=== PATIENT | male | born 1945 | race Caucasian/White ===

== ENCOUNTER 2020-04-24 05:51 | Inpatient (IN) | payer OTHER ==
[2020-04-24] VITALS (17 sets, daily range): BP systolic 110–160; BP diastolic 55–109
[~2020-04-24] VITALS: Ht 165.1 cm; Wt 79.4 kg
--- NOTE | ~2020-04-24 | EKG ---
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 Of Maintenance: BECKA : 1945 Requested By: Nuris Ortega Order Number: [id number] MD: Measurements Intervals [place] Rate: 99 P: 54 [place]: 191 QRS: -50 QRSD: 79 T: 84 QT: 291 QTc: 374 Interpretive Statements Sinus rhythm Inferoposterior infarct, acute (RCA) Abnormal lateral Q waves Probable RV involvement, suggest recording right precordial leads Compared to ECG 04/24/2020 05:54:09 Q waves now present Atrial premature complex(es) no longer present Myocardial infarct finding still present [email or web address] By: 08 Epiphany EpiphanyMD /RITA
[2020-04-24] MEDS ORDERED: PROSCAR 5MG TABL5 M1 PO (06:29)
[2020-04-24] MEDS ORDERED: OMEPRAZOLE40 MG PO (06:29)
[2020-04-24] MEDS ORDERED: SIMVASTATIN80 MG PO (06:30)
[2020-04-24] MEDS ORDERED: FLOMAX0.4 MG PO (06:30)
[2020-04-24] MEDS ORDERED: MELOXICAM15 MG PO (06:30)
[2020-04-24] MEDS ORDERED: MAGNESIUM400 MG PO (06:31)
[2020-04-24 06:33] LABS: ABSOLUTE BASOPHILS 0.1 thou/uL (0.0-0.2); ABSOLUTE EOSINOPHILS 0.3 thou/uL (0.0-0.7); ABSOLUTE LYMPHOCYTES 2.2 thou/uL (0.8-5.3); ABSOLUTE MONOCYTES 0.5 thou/uL (0.0-1.2); ABSOLUTE NEUTROPHILS 8.7 thou/uL (1.6-8.1); BASOPHILS 0.5 %; EOSINOPHILS 2.2 %; HEMATOCRIT 45.8 % (42.0-52.0); HEMOGLOBIN 15.3 gm/dL (14.0-18.0); MCH 30.5 pg (26.0-34.0); MCHC 33.3 g/dL (28.0-37.0); MCV 91.8 fL (80.0-100.0); MONOCYTES 4.6 %; MPV 9.8 fl. (7.2-11.1); NUCLEATED RBCS 0 /100WBC; PLATELET COUNT* 213 thou/uL (150-400); POLYS 73.7 %; RBC 4.99 mil/uL (4.50-6.00); RDW-CV 13.2 % (10.5-14.5); WBC 11.7 thou/uL (4.0-11.0)
[2020-04-24 06:44] LABS: ANION GAP 11 mmol/L (7-16); BUN 13 mg/dL (7-18); CALCIUM 8.6 mg/dL (8.5-10.1); CHLORIDE 99 mmol/L (98-107); CO2 25 mmol/L (21-32); CREATININE 1.3 mg/dL (0.6-1.3); GLUCOSE 243 mg/dL (70-99); POTASSIUM 3.4 mmol/L (3.5-5.1); PROTIME 10.2 Seconds (9.20-11.50); SODIUM 135 mmol/L (136-145)
[2020-04-24 06:54] LABS: ALBUMIN 4.2 g/dL (3.4-5.0); ALKALINE PHOSPHATASE 89 U/L (46-116); CHOLESTEROL 147 mg/dL (<200); HDL CHOLESTEROL 38 mg/dL (>40); LDL CHOLESTEROL 73 mg/dL (<100); MAGNESIUM 2.1 mg/dL (1.8-2.4); NT-PRO BRAIN NAT PEPTIDE 50 pg/mL (<300); SGOT 18 U/L (15-37); SGPT 48 U/L (30-65); TC:HDL 3.9 Ratio (Not establshd); TOTAL BILIRUBIN 0.4 mg/dL (<0.1-1.0); TOTAL PROTEIN 7.4 g/dL (6.4-8.2); TRIGLYCERIDE 181 mg/dL (<150); VLDL 36 mg/dL (<40)
[2020-04-24 06:55] LABS: SERUM ASSESSMENT Clear
--- NOTE | 2020-04-24 09:45 | NUR ---
PT REFUSING ANY PAIN MEDICATION FOR CHEST DISCOMFORT.
--- NOTE | 2020-04-24 10:04 | CARD ---
[facility] [address] [place] [address] CARDIAC CATH REPORT Name: EDUARDO DYKES Sanjiv Room: [address] IN [facility]#: [id number] Admission: 04/24/20 Attend Phys: Pushpa Centeno Discharge: Date of : 47 Report #: [id number] THIS REPORT FOR: cc: FAM - No family physician/PCP FAM - No family physician/PCP ~ Rogelio Diamond MD APPROVED REPORT Study performed: 04/24/2020 06:36:32 Patient Details Patient Status: ED Room #: The patient is a 75 year-old male Event Personnel Rogelio Diamond Regional Guide, Charla Ray RN RN, Delaney Saul RTR Scrub, Angel Sam RTR Monitor Procedures Performed Rt femoral artery access, Coronary Angiography Only CORANG , LUZMA Place w/wo Plasty Single CIRC , Hemostasis w/ Angioseal Indication STEMI (>0 to less than or equal to 6 hours), Dyspnea, Chest pain Risk Factors Hypercholesterolemia Admission/Lab Medications/Medications given during procedure Ticagrelor PO 180 mg, Angiomax IV 12 ml, Aggrastat IV 27.83 ml per hr, Aggrastat Unknown 8 ml, Adenosine IC 150 mcg Procedure Narrative The patient was brought emergently to the Cardiac Catheterization Laboratory and was prepped and draped in a sterile manner. The right femoral was infiltrated with 2% Lidocaine subcutaneous anesthesia. A [place] 6 FR sheath was inserted into the right femoral artery. Coronary angiography was performed using coronary diagnostic catheters. The right coronary system was accessed and visualized with a 6F JR4 catheter. The left coronary system was accessed and visualized with a 6F JL4 catheter. Pre[place] [address] CARDIAC CATH REPORT Name: EDUARDO DYKES Room: [address] IN [facility]#: [id number] Admission: 04/24/20 Attend Phys: Pushpa Centeno Discharge: Date of : 47 Report #: [id number] was performed . Closure device was deployed with a 6 Fr Angioseal STS. The patient tolerated the procedure well and there were no complications associated with the procedure. There was no hematoma. Intraoperative Conscious Sedation Sedation start time: 06:46 Case end Time: 07:34 No sedation given. Fluoro Time: 12.8 minutes Dose: DAP [id number] cGycm2 2248 mGy Contrast Type and Amount: Visipaque 180 ml Coronary Angiography The patient's coronary anatomy is left dominant. Diagnostic Cath Left Main The left main artery is a large-caliber vessel, patent with no flow-limiting lesions. LAD The LAD is a moderate-sized caliber vessel, traverses the anterior wall and wraps around the apex. There is a severe stenosis in the proximal/mid segment, 90%. Diagonal 1 This is a small to moderate-sized caliber vessel, with mild disease proximally. Circumflex The left circumflex artery is a moderate-sized caliber vessel, dominant as it supplies the left PDA. 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 OM1 This is a moderate-sized caliber vessel, supplies 2 branches as it travels the lateral wall. There is mild disease in the proximal segment. OM2 This is a moderate-sized caliber vessel, patent with no flow-limiting lesions. L PDA There is severe diffuse disease throughout the left PDA. Right Coronary This is a small, nondominant vessel with no flow-limiting lesions. Left Ventriculography Left Ventriculography was not performed. Hemodynamics The aortic pressure is 134/70 mmHg with a mean of 101 mmHg. PCI Technique Lesion Anticoagulation was achieved with Angiomax. Patient was preloaded with Angiomax IV 12 ml. Percut[place] [address] CARDIAC CATH REPORT Name: EDUARDO DYKES Room: [address] IN [facility]#: [id number] Admission: 04/24/20 Attend Phys: Pushpa Centeno Discharge: Date of : 47 Report #: [id number] performed on the proximal circumflex artery segment. The lesion stenosis prior to intervention was 100% with JACKI 0 flow. A 6FR XB 3.5 100CM Guide Catheter was used to engage the lm ostium. A Luge Wire 180 Interventional Guidewire was used to cross the lesion. BALLOON DILATION A Balloon catheter Trek RX 2.5 X 12 was inserted and inflated up to 8.00atm for 12seconds. Additional Inflation: 8.00atm for 5seconds. Additional Inflation: 8.00atm for 6seconds. After the initial balloon dilatation with a 2.5 mm compliant balloon, there was filling defects consistent with thrombus at the tail end of the occlusion in the proximal left circumflex artery. Pronto extraction catheter used for thrombectomy. He did have decreased blood flow in the distal left circumflex artery, a 2.0 mm wuqf-nre-cmaf balloon was placed in the distal left circumflex artery and aliquots of adenosine was introduced. This restored the distal flow to JACKI II. The blood flow to OM1 and OM 2 was JACKI-3 throughout the procedure. STENT DEPLOYMENT A drug-eluting stent Shashank RX Stent 3.0X18mm was inserted and inflated up to 18.00atm for 14seconds. After the initial stent deployment, there was evidence for thrombus just distal to the stent. A second stent (3.0 mm Shashank LUZMA) was placed at this region to cover the thrombus. Final angiography reveals 0 % stenosis with JACKI 3 flow. PCI Technique Lesion 2 Percutaneous Coronary Intervention was performed on the mid circumflex artery segment. Stent Deployment A drug-eluting stent Shashank RX Stent 3.0X12mm was inserted and inflated up to 18.00atm for 11seconds. Additional Inflation: 18.00atm for 6seconds. Conclusion 1. Successful insertion of drug-eluting stents into the total occlusion in the proximal segment of a dominant left circumflex artery. 2. A Pronto extraction catheter was used to remove thrombus. 3. There is a severe occlusion in the proximal/mid LAD, recommend a staged PCI procedure. [address] [address] CARDIAC CATH REPORT Name: EDUARDO DYKES: [address] [facility] IN .R.#: [id number] Admission: 04/24/20 Attend Phys: Pushpa Centeno Discharge: Date of : 47 Report #: [id number] 4. Recommend aggressive risk factor management and dual antiplatelet therapy. <ELECTRONICALLY SIGNED> By: Rogelio Diamond MD 04/24/20 1004 1004 1004Rogelio Diamond MD /INF
--- NOTE | 2020-04-24 10:30 | NUR ---
RECEIVED PT AT 0924 TO PREOP AREA HOLDING, AWAITING INPATIENT ROOM AVAILABILTY. RECEIVED REPORT, CHECKED GROIN AND PEDAL PULSES UPON ARRIVAL. VSS, MONITOR APPLIED, 02 PER NRB. ADMISSION HISTORY AND ASSESSMENT COMPLETED. AT BEDSIDE. TAKING IN PO FLUIDS.
--- NOTE | 2020-04-24 11:30 | NUR ---
BIVALIRUDIN GTT FROM COW BUYER DISCONTINUED AT THIS TIME.
--- NOTE | 2020-04-24 12:16 | EKG ---
[place] [address] ELECTROCARDIOGRAM REPORT Name: EDUARDO DYKES Room: [place] [address] ADM IN [facility]#: [id number] Admission: 04/24/20 Attend Phys: Ronaldo Broussard Discharge: Date of : 47 Date of Service: 04/24/20 0554 Report #: [id number] THIS REPORT FOR: //name// [facility] ED Test Date: 2020-04-24 Test Time: 05:54:09 Pat Name: EDUARDO DYKES Department: Room: [facility] Gender: M Rolled Ham Lacer: SY : 1945 Requested By: Nuris Ortega Order Number: [id number] MD: Rosalio Morin Measurements Intervals [place] Rate: 75 P: 65 ID: 199 QRS: 46 QRSD: 109 T: 91 QT: 358 QTc: 400 Interpretive Statements Sinus rhythm Atrial premature complexes Inferoposterior infarct, acute (RCA) Probable RV involvement, suggest recording right precordial leads Baseline wander in lead(s) V3 No previous ECG available for comparison Electronically Signed On 04-24-2020 12:16:25 MENTAL HEALTH NURSE by Rosalio Morin [email or web address] <ELECTRONICALLY SIGNED> By: Rosalio Morin MD, FAC 04/24/20 1216 0554 0554 Rosalio Morin MD, FAC /EPI
--- NOTE | 2020-04-24 12:18 | EKG ---
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 : 1945 Requested By: Rosalio Morin Order Number: [id number] Opal MD: Rosalio Morin Measurements Intervals [place] Rate: 99 P: 54 ID: 191 QRS: -50 QRSD: 79 T: 84 QT: 291 QTc: 374 Interpretive Statements Sinus rhythm Inferoposterior infarct, acute (RCA) Abnormal lateral Q waves Probable RV involvement, suggest recording right precordial leads Compared to ECG 04/24/2020 05:54:09 Atrial premature complex(es) no longer present Myocardial infarct finding still present Electronically Signed On 04-24-2020 12:18:45 PUG MILL OPERATOR by Rosalio Morin [email or web address] <ELECTRONICALLY SIGNED> By: Rosalio Morin MD, [facility] 04/24/20 1218 1109 1109 Rosalio Morin MD, [facility] /EPI
--- NOTE | 2020-04-24 12:30 | NUR ---
RT CALLED FOR ALBUTEROL MDI
[2020-04-24 12:40] LABS: CALCIUM 9.2 mg/dL (8.5-10.1); POTASSIUM 4.1 mmol/L (3.5-5.1)
[2020-04-24 12:44] LABS: PHOSPHORUS* 2.3 mg/dL (2.5-4.9)
--- NOTE | 2020-04-24 12:45 | NUR ---
DR. KIRK IN TO SEE PT. TALKED WITH PT AND .
--- NOTE | 2020-04-24 13:24 | NUR ---
Called RT for 2nd time about 1130 nebulizer dose. RT arrived and is assessing pt. Pt is minimally elevated in bed and able to eat parial lunch
--- NOTE | 2020-04-24 13:34 | NUR ---
Dr. Zhang here and told of pts elevated trop. Discussed findings from RT and albuterol changed to PRN.
--- NOTE | 2020-04-24 15:20 | NUR ---
REPORT CALLED TO PRESTON JOHNSON. TRANSPORTED PT VIA BED TO ROOM 231. MONITOR APPLIED. PT ORIENTED TO ROOM AND CALL LIGHT. WEARING 3L/NC, NS AT 50 ML/HR. CALL LIGHT IN REACH.
--- NOTE | 2020-04-24 15:38 | NUR ---
RECIEVED REPORT FROM TIERNEY RN IN PACU AT 1454- S/P CATH VIA ACCESS TO RIGHT GROIN WITH 2 STEANTS REPORTED TO HAVE BEEN PLACED TO LEFT CIRCUMFLEX- PT ARRIVED TO UNIT VIA BED AT 1512 TO ROOM 231- INVESTIGATOR INTERNAL REVENUE PLACED ORDERED, TRACING SR- VSS, O2 SAT 96% ON 2L VIA NC- PT A&O X4- CONT OF BOWEL AND BLADDER- OFF BED REST AT THIS TIME-IV NOTED TO RIGHT AC AND LEFT WRIST INTACT, IVF INFUSSING PRESCIBED- RIGHT GROIN C/D/I WITH NO HEMATOMA NOTED- MILD DISCOMFORT REPORTED TO MID CHEST- PRIOR ASSESSMENT REVIEWED AND THIS NURSE AGREES-PT DENIES ANY OPEN AREAS/SOARS- CALL LIGHT AND PERSONAL BELONGINGS WITH IN REACH- ALL NEEDS MET AT THIS TIME-WCTM
--- NOTE | 2020-04-24 17:16 | 2DMMODE ---
[place] [address] 2 D/M-MODE ECHOCARDIOGRAM Name: EDUARDO DYKES Room: [address] IN [facility]#: [id number] Admission: 04/24/20 Attend Phys: Ronaldo Broussard Discharge: Date of : 47 Date of Service: 04/24/20 1716 Report #: [id number] THIS REPORT FOR: cc: Cameron Allen Bradley L. DO Blick, David R. MD [facility] ~ APPROVED REPORT Study performed: 04/24/2020 13:43:04 EXAM: Comprehensive 2D, Doppler, and color-flow Echocardiogram Patient Location: In-Patient Room #: er BSA: 1.87 HR: 82 bpm BP: 131/84 mmHg Rhythm: NSR Other Information Study Quality: Good Indications Acute OR Chest Pain 2D Dimensions IVSd: 10.65 (7-11mm) LVOT Diam: 18.09 (18-24mm) LVDd: 47.29 mm PWd: 10.47 (7-11mm) Ascending Ao: 31.82 (22-36mm) LVDs: 34.21 (25-40mm) Aortic Root: 30.72 mm Volumes Left Atrial Volume (Systole) LA ESV Index: 25.70 mL/m2 Aortic Valve AoV Peak Phu.: 1.09 m/s AO Peak Gr.: 4.73 mmHg LVOT Max P.24 mmHg AO Mean Gr.: 2.67 mmHg LVOT Mean P.83 mmHg LVOT Max V: 1.03 m/s AO V2 VTI: 17.46 cm LVOT Mean V: 0.61 m/s ÁNGELA (VTI): 2.65 cm2 LVOT V1 VTI: 18.00 [place] [address] 2 D/M-MODE ECHOCARDIOGRAM Name: EDUARDO DYKES Room: [address] IN [facility]#: [id number] Admission: 04/24/20 Attend Phys: Ronaldo Broussard Discharge: Date of : 47 Date of Service: 04/24/20 1716 Report #: [id number] Mitral Valve E/A Ratio: 1.28 MV Decel. Time: 167.83 ms MV E Max Phu.: 0.72 m/s MV PHT: 48.67 ms MVA (PHT): 4.52 cm2 TDI E/Lateral E': 9.00 E/Medial E': 6.55 Medial E' Phu.: 0.11 m/s Lateral E' Phu.: 0.08 m/s Pulmonary Valve PV Peak Phu.: 0.90 m/s PV Peak Gr.: 3.21 mmHg Tricuspid Valve RAP Estimate: 5.00 mmHg TR Peak Gr.: 34.90 mmHg RVSP: 39.00 mmHg PA Pressure: 39.00 mmHg Left Ventricle The left ventricle is normal size. severe hypokinesis noted of the posterior wall There is normal left ventricular wall thickness. Left ventricular systolic function is mildly decreased. LVEF is 40-45%. The left ventricular diastolic function is normal. Right Ventricle The right ventricle is normal size. The right ventricular systolic function is normal. Atria The left atrium size is normal. The right atrium size is normal. Aortic Valve The aortic valve is normal in structure. No aortic regurgitation is present. There is no aortic valvular stenosis. Mitral Valve The mitral valve is normal in structure. Trace mitral regurgitation. No evidence of mitral valve stenosis. Tricuspid Valve The tricuspid valve is normal in structure. Mild tricuspid regurgitation. estimated pa pressure 45 [place] [address] 2 D/M-MODE ECHOCARDIOGRAM Name: EDUARDO DYKES Room: [address]#: [id number] Admission: 04/24/20 Attend Phys: Ronaldo Broussard Discharge: Date of : 47 Date of Service: 04/24/20 1716 Report #: [id number] Pulmonic Valve Pulmonic valve is not well visualized. There is no pulmonic valvular regurgitation. Great Vessels The aortic root is normal in size. IVC is normal in size and collapses >50% with inspiration. Pericardium There is no pericardial effusion. <Conclusion> LVEF is 40-45%. severe hypokinesis noted of the posterior wall Mild tricuspid regurgitation. estimated pa pressure 45 mm Hg <ELECTRONICALLY SIGNED> By: Rosalio Morin MD, FACC 04/24/201715 15 15 Rosalio Morin MD, FACC /INF
[2020-04-25] VITALS (7 sets, daily range): BP systolic 99–152; BP diastolic 60–79
[2020-04-25 04:25] LABS: HEMATOCRIT 41.9 % (42.0-52.0); HEMOGLOBIN 14.1 gm/dL (14.0-18.0); MCH 30.4 pg (26.0-34.0); MCHC 33.7 g/dL (28.0-37.0); MCV 90.1 fL (80.0-100.0); MPV 9.9 fl. (7.2-11.1); NUCLEATED RBCS 0 /100WBC; PLATELET COUNT* 193 thou/uL (150-400); RBC 4.65 mil/uL (4.50-6.00); RDW-CV 13.5 % (10.5-14.5); WBC 19.4 thou/uL (4.0-11.0)
[2020-04-25 05:03] LABS: ANION GAP 14 mmol/L (7-16); BUN 15 mg/dL (7-18); CALCIUM 9.2 mg/dL (8.5-10.1); CHLORIDE 100 mmol/L (98-107); CO2 24 mmol/L (21-32); GLUCOSE 143 mg/dL (70-99); SODIUM 138 mmol/L (136-145)
--- NOTE | 2020-04-25 06:34 | NUR ---
ASSUMED CARE OF PT AFTER REPORT AT 1930. PT A&OX4. VSS. PHYSICAL ASSESSMENT COMPLETED AND CHARTED. PT ON O2 AT 2L NC. PT TRACING SR ON TELE. PT UPADLIB TO RESTROOM. PT DENIES ANY PAIN. POST CATH SITE TO RIGHT GROIN C/D/I. CALL LIGHT WITHIN REACH.
[2020-04-25 08:01] LABS: ABSOLUTE LYMPHOCYTES 0.6 thou/uL (0.8-5.3); ABSOLUTE MONOCYTES 0.2 thou/uL (0.0-1.2); ABSOLUTE NEUTROPHILS 18.6 thou/uL (1.6-8.1)
[2020-04-25 08:02] LABS: PLATELET ESTIMATE ADEQUATE
--- NOTE | 2020-04-25 10:39 | NUR ---
CM SPOKE TO THE PT TO DISCUSS CM ASSESSMENT. PT A&O, INDEPENDENT WITH ADL'S, ACTIVE AND DRIVES. PT RESIDES AT HOME WITH SPOUSE. PT USES 0 DME. PT HAS 0 HX OF HH OR SNF. NO CM D/C PLANNING NEEDS ANTICIPATED. CM WILL REMAIN AVAILABLE TO ASSIST AND FOLLOW NEEDED.
--- NOTE | 2020-04-25 18:39 | NUR ---
PATIENT RESTING IN BED. PATIENT IS UP AD WEN IN ROOM. PATIENT HAS COMPLAINTS OF ONGOING MILD CHEST DISCOMFORT, DENIES NEED FOR MEDICATION. NITROPASTE APPLIED ORDERED. PATIENT HAD COMPLAINTS OF SHORTNESS OF BREATH THIS AFTERNOON. PATIENT FOUND ON ROOM AIR, SATS AT 90%, PATIENT PLACED BACK ON 2L/NC AND SYMPTOMS IMPROVED. PATIENT HAS GOOD APPETITE. PATIENT DENIES ANY NEEDS AT THIS TIME. CALL LIGHT WITHIN REACH.
[2020-04-26 04:09] VITALS: BP 96/62
[2020-04-26 04:13] LABS: ABSOLUTE NEUTROPHILS 15.3 thou/uL (1.6-8.1); BASOPHILS 0.1 %; HEMOGLOBIN 12.7 gm/dL (14.0-18.0); MCH 30.3 pg (26.0-34.0); MCHC 33.4 g/dL (28.0-37.0); MCV 90.7 fL (80.0-100.0); MPV 10.4 fl. (7.2-11.1); NUCLEATED RBCS 0 /100WBC; PLATELET COUNT* 158 thou/uL (150-400); POLYS 87.9 %; RBC 4.19 mil/uL (4.50-6.00); RDW-CV 13.4 % (10.5-14.5); WBC 17.4 thou/uL (4.0-11.0)
[2020-04-26 04:33] LABS: ALBUMIN 3.4 g/dL (3.4-5.0); CALCIUM 8.9 mg/dL (8.5-10.1); CREATININE 1.2 mg/dL (0.6-1.3); POTASSIUM 4.3 mmol/L (3.5-5.1); TOTAL PROTEIN 6.4 g/dL (6.4-8.2)
--- NOTE | 2020-04-26 07:36 | NUR ---
ASSUMED CARE OF PT AFTER REPORT AT 1930. PT A&OX4. VSS. PHYSICAL ASSESSMENT COMPLETED AND CHARTED. PT ON O2 AT 2L NC PRN. PT TRACING SR/PAC ON TELE. PT UPADLIB TO RESTROOM. PT DENIES ANY PAIN. CALL LIGHT WITHIN REACH.
[2020-04-26 08:51] VITALS: BP 91/61
--- NOTE | 2020-04-26 12:18 | NUR ---
ASSUMED CARE OF PT THIS AM AROUND 714- METER READER IN PLACE ORDERED, TRACING SR- UPON ASSESSMENT PT NOTED TO BE RESTING IN BED, WATCHING TV- PT A&O X4- CONT OF BOWEL AND BLADDER-UP AD-WEN IN ROOM, STEADY GAIT NOTED- LCTA, RESP EVEN AND UN-LABORED- VSS, O2 SAT 94% ON RA- ABD SOFT/ROUND/NON-TENDER, BS X4 QUADS- LAST BM REPORTED X2 DAYS AGO- IV NOTED TO RIGHT AC AND LEFT HAND INTACT AND SL-GOOD PO INTAKE NOTED THIS SHIFT WITH MEALS, BS MONITORED ORDERED- RIGHT GROIN SITE C/D/I, HEALING WELL- PLANNED CATH FOR IN AM, PT TO BE NPO AT 12PM-BP NOTED TO BE LOW AT 91/61, NITRO PASTE REMOVED FROM CHEST AND NEXT DOSE HELD-CALL LIGHT AND PERSONAL BELONGINGS WITH IN REACH- ALL NEEDS MET AT THIS TIME-WCTM
[2020-04-26 13:22] LABS: TROPONIN-I LEVEL > 200.00 ng/mL (<0.06)
[2020-04-26 14:04] VITALS: BP 98/67
[2020-04-26 18:59] VITALS: BP 98/66
[2020-04-26 19:17] VITALS: BP 98/66
[2020-04-26 21:00] VITALS: BP 104/66
[2020-04-27] VITALS (12 sets, daily range): BP systolic 101–162; BP diastolic 62–82
[2020-04-27 04:10] LABS: ABSOLUTE LYMPHOCYTES 0.8 thou/uL (0.8-5.3); ABSOLUTE MONOCYTES 0.8 thou/uL (0.0-1.2); ABSOLUTE NEUTROPHILS 11.9 thou/uL (1.6-8.1); BASOPHILS 0.3 %; EOSINOPHILS 0.1 %; HEMATOCRIT 39.7 % (42.0-52.0); HEMOGLOBIN 13.5 gm/dL (14.0-18.0); LYMPHOCYTES 6.2 %; MCH 30.9 pg (26.0-34.0); MCHC 33.9 g/dL (28.0-37.0); MCV 91.1 fL (80.0-100.0); MONOCYTES 6.1 %; MPV 10.2 fl. (7.2-11.1); NUCLEATED RBCS 0 /100WBC; PLATELET COUNT* 147 thou/uL (150-400); POLYS 87.3 %; RBC 4.36 mil/uL (4.50-6.00); RDW-CV 13.4 % (10.5-14.5); WBC 13.6 thou/uL (4.0-11.0)
[2020-04-27 04:26] LABS: APTT 29.2 Seconds (25.0-31.3)
[2020-04-27 04:35] LABS: ALBUMIN 3.3 g/dL (3.4-5.0); CALCIUM 8.9 mg/dL (8.5-10.1); CREATININE 1.2 mg/dL (0.6-1.3); POTASSIUM 3.9 mmol/L (3.5-5.1); TOTAL BILIRUBIN 1.9 mg/dL (<0.1-1.0); TOTAL PROTEIN 6.7 g/dL (6.4-8.2)
--- NOTE | 2020-04-27 05:38 | NUR ---
No acute event this shift. Pt complains of mild R leg pain. Tylenol given with relief. R groin cath site intact. Pt VS stable. Pt NPO midnight for heart cath. Call light within reach, will continue POC.
--- NOTE | 2020-04-27 07:15 | NUR ---
CHANGE OF SHIFT REPORT GIVEN PATIENT SEEN AT BEDSIDE, IN BED ASLEEP ASSUMED PATIENT CARE
--- NOTE | 2020-04-27 08:26 | CON ---
[address] [address] CONSULTATION Name: EDUARDO DYKES Sanjiv Room: [address] IN .[place].#: [id number] Admission: 04/24/20 Attend Phys: Pushpa Centeno Discharge: Date of : 47 Report #: [id number] THIS REPORT FOR: cc: Cameron Allen Bradley L. DO ~ Rogelio Diamond MD DATE OF SERVICE: 04/24/2020 CARDIOLOGY CONSULT INDICATION: Chest pain. HISTORY OF PRESENT ILLNESS: This is a pleasant 75-year-old gentleman, with a history of hypercholesterolemia, presenting with acute onset of chest pain. He woke up approximately 2 hours prior to presentation to the ER with substernal chest pain. He had some numbness down both arms and had some mild shortness of breath. He denies any fever, nausea, chills, orthopnea or diaphoresis. He has no prior cardiac history. He presented to the ER, ECG revealed ST elevations in the inferior leads. PAST MEDICAL HISTORY: Denies diabetes, denies hypertension, positive hypercholesterolemia, MEDICATIONS: On a statin. ALLERGIES: TO PENICILLIN. SOCIAL HISTORY: Denies any tobacco use. REVIEW OF SYSTEMS: A full 10-point review of systems is performed. Only the pertinent positives and negatives are described in the HPI. PHYSICAL EXAMINATION: VITAL SIGNS: Blood pressure is 100/60, heart rate is 70 beats per minute. GENERAL APPEARANCE: This is an elderly appearing male, in mild distress. HEENT: Normocephalic, atraumatic. NECK: Supple. LUNGS: Clear to auscultation. CARDIAC: Regular rate and rhythm, S1, S2 positive. ABDOMEN: Soft, nontender. EXTREMITIES: No edema, no cyanosis. EKG reveals sinus rhythm with Q-waves inferiorly with ST elevation of 1-2 mm, with reciprocal ST segment depression in the [place] [address] CONSULTATION Name: EDUARDO DYKES Sanjiv Room: [address]#: [id number] Admission: 04/24/20 Attend Phys: Pushpa Centeno Discharge: Date of : 47 Report #: [id number] ASSESSMENT AND PLAN: 1. Acute inferior wall myocardial infarction, the patient was treated with heparin and aspirin in the Emergency Room. He continues to have chest pain. Plan is to proceed with emergent cardiac catheterization. This was discussed with the patient. 2. Hypercholesterolemia, continue with statin therapy. 3. Hypertension. We will monitor his blood pressure and initiate guideline-directed medical therapy as blood pressure allows. <ELECTRONICALLY SIGNED> By: Rogelio Diamond MD 04/27/20 0826 0750 [id number] Diamond MD /nt
--- NOTE | 2020-04-27 10:06 | EKG ---
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1884 : 1945 Requested By: Rosalio Morin Order Number: [id number] Opal MD: Reza Zavala Measurements Intervals [place] Rate: 75 P: 29 [place]: 189 QRS: -58 QRSD: 128 T: -40 QT: 432 QTc: 483 Interpretive Statements Sinus rhythm Nonspecific IVCD with LAD Inferior infarct, recent Abnrm T, consider ischemia, anterolateral lds Compared to ECG 04/24/2020 11:09:23 Intraventricular conduction delay persists Possible ischemia now present Myocardial infarct finding still present Electronically Signed On 04-27-2020 10:06:26 MAGISTRATE by Reza Zavala [email or web address] <ELECTRONICALLY SIGNED> By: Reza Zavala MD, FACC 04/27/20 1006 1316 1316 Reza Zavala MD, [facility] /EPI
--- NOTE | 2020-04-27 11:49 | NUR ---
CM INFORMED DURING PRIME ROUNDING OF THE PLAN OF CARE FOR THE PT. PLAN FOR PT TO HAVE STENT PLACED TODAY. NO CM D/C PLANNING NEEDS ANTICIPATED AT THIS TIME. CM WILL REMAIN AVAILABLE TO ASSIST AND FOLLOW NEEDED.
--- NOTE | 2020-04-27 13:20 | CARD ---
[address] [place] [address] CARDIAC CATH REPORT Name: EDUARDO DYKES Sanjiv Room: [address] IN R.#: [id number] Admission: 04/24/20 Attend Phys: Pushpa Centeno Discharge: Date of : 47 Report #: [id number] THIS REPORT FOR: cc: Cameron Allen Bradley L. DO ~ Reza Zavala MD [facility] APPROVED REPORT Study performed: 04/27/2020 09:58:41 Patient Details Patient Status: In-Patient Room #: The patient is a 75 year-old male Event Personnel Reza Zavala Chemical Sales Representative, Ravin Mahoney Scrub, Delaney Saul RTR Monitor, Charla Ray RN pilot plant supervisor Performed Art Access - R femoral artery Left Heart Cath w/or w/o Coronaries LUZMA Place w/wo Plasty Single LAD Hemostasis w/ Angioseal Indication Chest pain, Status post recent STEMI with PCI to the circumflex Risk Factors Hypercholesterolemia, Hypertension Previous Procedures/Diagnoses Previous PCI Admission/Lab Medications/Medications given during procedure Lidocaine Subcut 14 ml, Oxygen Nasal cannula 2 l per min, 0.9% Sodium Chloride IV 75 ml per hr, 0.9% Sodium Chloride IV 100 ml per hr, Angiomax IV 11 ml, Angiomax Drip IV 27.16 ml per hr, Nitroglycerin IC 100 mcg, Angiomax IV 2 ml, 0.9% Sodium Chloride IV 125 ml per hr, Aspirin PO 81 mg, Effient PO 60 mg Procedure Narrative The patient was brought urgently to the Cardiac Catheterization Laboratory and was prepped and draped in a sterile manner. The right femoral was infiltrated with 2% Lidocaine [place] [address] CARDIAC CATH REPORT Name: EDUARDO DYKES Room: [address]#: [id number] Admission: 04/24/20 Attend Phys: Pushpa Centeno Discharge: Date of : 47 Report #: [id number] [place] 6 FR sheath was inserted into the right femoral artery. Coronary angiography was performed using coronary diagnostic catheters. The left coronary system was accessed and visualized with a Diagnostic 6 Fr JL 4 catheter. The left ventricle was accessed and visualized with a Diagnostic 6 Fr Pigtail catheter. Left ventricular/Aortic Valve gradient assessed via catheter pullback. Left ventriculogram was performed in MOON projection. Pre-demployment femoral angiogram was performed . Closure device was deployed with a 6 Fr Angioseal STS 6Fr. The patient tolerated the procedure well and there were no complications associated with the procedure. There was no hematoma. Intraoperative Conscious Sedation No sedation given. Case start was 10:33 and case end was 11:34. Fluoro Time: 17.1 minutes Dose: DAP [id number] cGycm2 2222 mGy Contrast Type and Amount: Visipaque 360 ml Diagnostic Cath Left Main 0% narrowing LAD 90% tubular proximalmid vessel narrowing with 30% proximal first diagonal narrowing and 40% apical LAD narrowing Circumflex 30% proximal narrowing with widely patent proximalmid vessel stents and sub- total occlusion of the distal circumflex with left to left collaterals filling the distal circumflex retrogradely Right Coronary Small nondominant vessel as recently defined with 30% proximal narrowing Left Ventriculography The left ventricle is normal in size with Decreased contractility. The left ventricular ejection fraction is estimated to be 40%. Left ventricular wall motion abnormalities are present. There is no mitral insufficiency. There is hypo- akinesis of the basilar two thirds of the inferior wall Hemodynamics The aortic pressure is 99/56 mmHg with a mean of 74 mmHg. The left ventricular pressure is 90/7 mmHg with a mean of mmHg. The left ventricular end diastolic pressure is 20 mmHg. There was no gradient across the aortic valve upon pullback. [place] [address] CARDIAC CATH REPORT Name: EDUARDO DYKES Room: [address] IN [facility]#: [id number] Admission: 04/24/20 Attend Phys: Pushpa Centeno Discharge: Date of : 47 Report #: [id number] Anticoagulation was achieved with Angiomax Drip. Patient was preloaded with Angiomax IV 11 ml. Percutaneous coronary intervention was performed on the mid left anterior descending artery segment. The lesion stenosis prior to intervention was 90% with JACKI 3 flow. A 6FR XB 3.5 100CM Guide Catheter was used to engage the left ostium. A IG: ProwaterFlex 180CM Interventional Guidewire was used to cross the lesion. BALLOON DILATION A Balloon catheter Trek RX 2.25 X 15 was inserted and inflated up to 10.00atm for 9seconds. Additional Inflation: 12.00atm for 11seconds. STENT DEPLOYMENT A drug-eluting stent Shashank RX Stent 2.41T23xc was inserted and inflated up to 12.00atm for 11seconds. Additional Inflation: 15.00atm for 11seconds. POST STENT DEPLOYMENT BALLOON DILATION A Balloon catheter NC Euphora 2.5x12 was inserted and inflated up to 14.00atm for 10seconds. Additional Inflation: 15.00atm for 8seconds. Additional Inflation: 16.00atm for 8seconds. Final angiography reveals 0 % stenosis with JACKI 3 flow. PCI Technique Lesion 2 Percutaneous Coronary Intervention was performed on the proximal left anterior descending artery segment. Patient was preloaded with Angiomax IV 2 ml. The lesion stenosis prior to intervention was 90% with JACKI 3 flow. A 6FR XB 3.5 100CM Guide Catheter was used to engage the left ostium. A IG: ProwaterFlex 180CM Interventional Guidewire was used to cross the lesion. Balloon Dilation A Balloon catheter Trek RX 2.25 X 15 was inserted and inflated up to 12atm for 9seconds. Additional Inflation: 12atm for 8seconds. A balloon catheter NC Euphora 2.5 x 12 was inserted and inflated up to 16 JEFFERY for 8 seconds and 16 JEFFERY for 8 seconds. Stent Deployment A drug-eluting stent Shashank RX Stent 2.5 x 18 was inserted and inflated up to 14atm for 13seconds. Additional Inflation: 16atm for 8seconds. Additional Inflation: 14atm for 9seconds. Final angiography reveals 0 % stenosis with JACKI [address] [address] CARDIAC CATH REPORT Name: EDUARDO DYKES Sanjiv Room: [address] IN [facility].#: [id number] Admission: 04/24/20 Attend Phys: Pushpa Centeno Discharge: Date of : 47 Report #: [id number] flow. Conclusion 1. Severe coronary artery disease characterized by the following: A 90% proximalmid LAD stenosis with 40% distal LAD narrowing and 30% proximal first diagonal narrowing B 30% narrowing of the proximal portion of the dominant circumflex with widely patent proximal and mid vessel stents with subtotal distal circumflex occlusion and collateral filling of the distal circumflex via left to left collaterals filling it retrogradely C small nondominant right coronary artery with 30% proximal narrowing 2. Moderate impairment in global LV function, estimated ejection fraction being 40% with hypo- akinesis of the basal two thirds of the inferior wall 3. Moderate elevation of left ventricular end-diastolic pressure at rest 4. Successful PCI with deployment of sequential drug-eluting stents at the site of 90% proximalmid LAD stenosis with 0% residual narrowing and JACKI-3 flow to the distal vessel Recommendations Cardiac Risk Reduction Program Aggressive Medical Therapy Medications Administered Aspirin (any) Prasugrel <ELECTRONICALLY SIGNED> By: Reza Zavala MD, FACC 04/27/20 1320 19 1320Reza Zavala MD, FACC /INF
--- NOTE | 2020-04-27 16:19 | EKG ---
[place] [address] ELECTROCARDIOGRAM REPORT Name: EDUARDO DYKES Room: [address] ADM IN .R.#: [id number] Admission: 04/24/20 Attend Phys: Ronaldo Broussard Discharge: Date of : 47 Date of Service: 04/27/20 1311 Report #: [id number] THIS REPORT FOR: //name// [facility] Test Date: 2020-04-27 Test Time: 13:11:13 Pat Name: EDUARDO DYKES Department: Room: [address] Gender: M Brim Raiser: VANESSA : 1945 Requested By: Reza Zavala Order Number: [id number] Opal MD: Reza Zavala Measurements Intervals [place] Rate: 78 P: 54 ID: [id number] QRS: -64 QRSD: 88 T: 8 QT: 408 QTc: 465 Interpretive Statements Sinus rhythm Inferoposterior infarct, recent Abnormal lateral Q waves ST depression V1-V3 Compared to ECG 04/25/2020 13:16:[address] (T wave) deviation persists Intraventricular conduction delay no longer present Possible ischemia no longer present Myocardial infarct finding still present Electronically Signed On 04-27-2020 16:19:11 SUBSTANCE ABUSE TECHNICIAN by Reza Zavala [email or web address] <ELECTRONICALLY SIGNED> By: Reza Zavala MD, [facility] 04/27/20 1619 10 10 Reza Zavala MD, [facility] /EPI
[2020-04-28] VITALS (7 sets, daily range): BP systolic 103–114; BP diastolic 72–82
[2020-04-28 04:21] LABS: HEMATOCRIT 38.4 % (42.0-52.0); HEMOGLOBIN 13.1 gm/dL (14.0-18.0); MCH 30.5 pg (26.0-34.0); MCHC 34.1 g/dL (28.0-37.0); MCV 89.5 fL (80.0-100.0); MPV 10.6 fl. (7.2-11.1); RBC 4.29 mil/uL (4.50-6.00); RDW-CV 13.1 % (10.5-14.5); WBC 10.2 thou/uL (4.0-11.0)
[2020-04-28 04:24] LABS: ABSOLUTE EOSINOPHILS 0.1 thou/uL (0.0-0.7); ABSOLUTE MONOCYTES 0.8 thou/uL (0.0-1.2); ABSOLUTE NEUTROPHILS 8.3 thou/uL (1.6-8.1); BASOPHILS 0.3 %; EOSINOPHILS 1.4 %; HEMATOCRIT 38.3 % (42.0-52.0); HEMOGLOBIN 13.1 gm/dL (14.0-18.0); LYMPHOCYTES 9.5 %; MCH 30.7 pg (26.0-34.0); MCHC 34.3 g/dL (28.0-37.0); MCV 89.4 fL (80.0-100.0); MPV 10.5 fl. (7.2-11.1); NUCLEATED RBCS 0 /100WBC; PLATELET COUNT* 146 thou/uL (150-400); POLYS 80.8 %; RBC 4.28 mil/uL (4.50-6.00); WBC 10.3 thou/uL (4.0-11.0)
[2020-04-28 04:37] LABS: CALCIUM 8.5 mg/dL (8.5-10.1); POTASSIUM 3.4 mmol/L (3.5-5.1)
[2020-04-28 04:41] LABS: CALCIUM 8.4 mg/dL (8.5-10.1); CREATININE 1.1 mg/dL (0.6-1.3); POTASSIUM 3.4 mmol/L (3.5-5.1); TOTAL BILIRUBIN 1.5 mg/dL (<0.1-1.0); TOTAL PROTEIN 6.4 g/dL (6.4-8.2)
--- NOTE | 2020-04-28 04:47 | NUR ---
ASSUMED PATIENT CARE AT 1900. PATIENT ALERT AND ORIENTED TIMES FOUR. MINOR COMPLAINT OF CHEST PAIN WHEN HE LIES FLAT. ALLEVIATED WITH TYLENOL. PATIENT ABLE TO REST COMFORTABLY THROUGH THE NIGHT. CATH SITE INTACT WITH NO SIGN OF HEMATOMA. FLAGSETTER AND HOURLY ROUNDING COMPLETED CHARTED
[2020-04-28 04:49] LABS: TROPONIN-I LEVEL 22.56 ng/mL (<0.06)
[2020-04-28] MEDS ORDERED: EFFIENT10 MG PO (08:12)
[2020-04-28] MEDS ORDERED: NITROGLYCERIN0.4 MG SUBLING (08:12)
[2020-04-28] MEDS ORDERED: CARVEDILOL3.125 MG PO (08:12)
[2020-04-28] MEDS ORDERED: ASPIR 8181 MG PO (08:12)
[2020-04-28] MEDS ORDERED: LISINOPRIL2.5 MG PO (11:14)
--- NOTE | 2020-04-28 12:00 | NUR ---
CM INFORMED DURING PRIME ROUNDING OF THE PLAN OF CARE FOR THE PT. PLAN FOR PT TO D/C HOME TODAY WITH HH. CM SPOKE TO THE PT AND HIS SPOUSE AT THE BEDSIDE TO DISCUSS THIS AND THEY ARE IN AGREEMENT, BUT INFORM THAT [place] CM OFFERED PT HH CHOICES THAT PROVIDE SERVICE IN HIS AREA. PT HAS NO PREFERENCE. CM CALLED AND FAXED REFERRAL TO [facility]. CM AWAITING CALLBACK TO INFORM IF [facility] IS ABLE TO PROVIDE PT HH IN HIS AREA. CM WILL REMAIN AVAILABLE TO ASSIST AND FOLLOW NEEDED. [facility] PHONE: [phone] FAX: [phone]
--- NOTE | 2020-04-28 12:55 | EKG ---
[place] [address] ELECTROCARDIOGRAM REPORT Name: EDUARDO DYKES Room: [address] ADM IN .R.#: [id number] Admission: 04/24/20 Attend Phys: Ronaldo Broussard Discharge: Date of : 47 Date of Service: 04/28/20 0849 Report #: [id number] THIS REPORT FOR: //name// [facility] Test Date: 2020-04-28 Test Time: 08:49:30 Pat Name: EDUARDO DYKES Department: Room: [address] Gender: M Watershed Manager: : 1945 Requested By: Reza Zavala Order Number: [id number] Reading MD: Clark Manuel Measurements Intervals [place] Rate: 81 P: 41 [place]: 185 QRS: -71 QRSD: 93 T: 64 QT: 395 QTc: 459 Interpretive Statements Sinus rhythm Inferior infarct, old Compared to ECG 04/27/2020 13:11:13 Q waves no longer present ST (T wave) deviation no longer present Myocardial infarct finding still present Mass lateral cauda equina Electronically Signed On 04-28-2020 12:55:23 PHARMACEUTICAL BOTANIST by Clark Manuel [email or web address] <ELECTRONICALLY SIGNED> By: Clark Manuel MD, FACC 04/28/20 1255 0849 0849 Clark Manuel MD, FACC /EPI
--- NOTE | 2020-04-28 15:37 | NUR ---
PT DISCHARGED HOME WITH STILL SOA THINKING FROM [place] CXR DONE AND US OF BLADDER AREA PT KNOWS TO FOLLOW-UP NO CONCERNS AT THIS TIME
== END 2020-04-28 15:28 | disposition home health service (06) | DRG 246 ==
LOC: M.ERS 05:51 → M.2W 06:33 → M.TBA-ER 06:33 → M.2W 15:16
PROVIDERS: Emergency Medicine; Internal Medicine; Internal Medicine Cardiovascular Disease; ADMIT Internal Medicine; ATTEND Internal Medicine
DX: I21.19 ST elevation (STEMI) myocardial infarction involving other coronary artery of inferior wall (principal); I50.41 Acute combined systolic (congestive) and diastolic (congestive) heart failure; J96.00 Acute respiratory failure, unspecified whether with hypoxia or hypercapnia; R65.10 Systemic inflammatory response syndrome (SIRS) of non-infectious origin without acute organ dysfunction; E78.00 Pure hypercholesterolemia, unspecified; I11.0 Hypertensive heart disease with heart failure; E66.3 Overweight; Z20.822 Contact with and (suspected) exposure to COVID-19; K21.9 Gastro-esophageal reflux disease without esophagitis; N40.0 Benign prostatic hyperplasia without lower urinary tract symptoms; Z88.0 Allergy status to penicillin; Z79.899 Other long term (current) drug therapy; Z87.891 Personal history of nicotine dependence; Z68.29 Body mass index [BMI] 29.0-29.9, adult

== ENCOUNTER → 2020-11-20 | Outpatient (CLI) | payer OTHER ==
[~2020-11-20] MED LIST: ASPIR 8181 MG PO; CARVEDILOL3.125 MG PO; EFFIENT10 MG PO; FLOMAX0.4 MG PO; LISINOPRIL2.5 MG PO; MAGNESIUM400 MG PO; MELOXICAM15 MG PO; NITROGLYCERIN0.4 MG SUBLING; OMEPRAZOLE40 MG PO; PROSCAR 5MG TABL5 M1 PO; SIMVASTATIN80 MG PO
--- NOTE | 2020-11-24 09:36 | CARDNUC ---
[place] [address] CARDIAC NUCLEAR IMAGING REPORT Name: EDUARDO DYKES Room: [facility]#: [id number] Admission: 11/20/20 Attend Phys: Pushpa Fuller Discharge: Date of : 47 Date of Service: 11/24/20 0936 Report #: [id number] THIS REPORT FOR: cc: Cameron Allen Bradley L. DO Liston, Michael J. MD [facility] ~ APPROVED REPORT Study performed: 11/20/2020 13:41:26 Exam: Nuclear Stress Test Indication: CAD s/p PCI Patient Location: Out-Patient Stress Tech: ASHLEY ALVAREZ Stress Nurse: Bonnie Lamar RN NM Tech:TE Little Ht: 5 ft 5 in Wt: 148 lbs BSA: 1.74 m2 BMI: 24.62 Medical History Medical History: CAD s/p stent, CAD s/p SC, HTN, Hyperlipidemia Medications: carvedilol, asa-81, finasteride, prasugrel, simvastatin Allergies: penicillin Cardiac Risk Factors: Age, HTN, Hyperlipidemia, Past Smoker Previous Cardiac Procedures: PCI, Myocardial infarction Exercise History: Physically active Meds Held (24 hrs): carvedilol Stress Test Details Stress Test: Pharmacologic stress testing performed using 0.4 mg of regadenoson per 5 mL given IV over 10 seconds. HR Resting HR: 57 bpm Max Heart Rate (APMHR): 146 bpm Max HR Achieved: 70 bpm Target HR (85% APMHR): 124 bpm % of APMHR: 47 Recovery HR: 70 bpm BP Resting BP: 121/78 mmHg Max BP: 130/69 [place] [address] CARDIAC NUCLEAR IMAGING REPORT Name: EDUARDO DYKES Room: [facility]#: [id number] Admission: 11/20/20 Attend Phys: Pushpa Fuller Discharge: Date of : 47 Date of Service: 11/24/20 0936 Report #: [id number] ECG Resting ECG: Sinus Rhythm Stress ECG: Sinus Rhythm ST Change: None Arrhythmia: None Recovery ECG: Sinus Rhythm Recovery ST Change: None Recovery Arrhythmia: None Nurse Comments pt had bad knee today NM EXAM: Myocardial Perfusion REST/STRESS Imaging Protocol: Rest Tc-99m/Stress Tc-99m 1 day Resting Data Rest SPECT myocardial perfusion imaging was performed in supine position 30 minutes following the intravenous injection of 11.5 mCi of Tc-99m Sestamibi. Time of rest injection: 1240 Date: 11/20/2020 The images were gated to evaluate regional wall motion and calculate left ventricular ejection fraction. Administration Route: IV Administration Site: Right Hand Pharmacologic Stress Pharmacologic stress test was performed by injecting Regadenoson 0.4 mg IV push followed by the intravenous injection of 35.8 mCi of Tc-99m Sestamibi. Time of stress injection: 1350 Date: 11/20/2020 Administration Route: IV Administration Site: Right Hand Gated Stress SPECT was performed 40 minutes after stress injection. The images were gated to evaluate regional wall motion and calculate left ventricular ejection fraction. Prone imaging was performed. Study Quality Study: Good Artifact: No artifact Study Data At rest, the left ventricular ejection fraction was 33%.. Post stress, the left ventricular ejection was 30%.. [place] [address] CARDIAC NUCLEAR IMAGING REPORT Name: DYKESEDUARDOESAU OSULLIVAN Room: [facility]#: [id number] Admission: 11/20/20 Attend Phys: Pushpa Fuller Discharge: Date of : 47 Date of Service: 11/24/20 0936 Report #: [id number] TID = 1.07. Perfusion There is an extensive severe intensity defect involving the basal to apical inferior and inferolateral wall that is fixed. No reversible defects were identified. Wall Motion There is severe left ventricular systolic dysfunction with akinesis of the basal to distal inferior and inferolateral wall. Nuclear Conclusion ECG Findings: negative for ischemia Clinical Findings: negative for ischemia Nuclear Findings: negative for ischemia Exercise Capacity: not assessed Left Ventricular Function: abnormal Risk Study: high Myocardial perfusion images are consistent with prior extensive inferolateral infarct. No reversible defects were identified. Global LV systolic function is severely decreased consistent with an ischemic cardiomyopathy. This is a high risk study due to severe LV systolic dysfunction. <ELECTRONICALLY SIGNED> By: Clark Manuel MD, FACC 11/24/2036 5 5 Clark Manuel MD, FACC /INF
== END ==
LOC: M.NUC 11-09 16:22
PROVIDERS: ATTEND Internal Medicine
DX: I25.10 Atherosclerotic heart disease of native coronary artery without angina pectoris (principal); I25.2 Old myocardial infarction; I10 Essential (primary) hypertension; Z95.5 Presence of coronary angioplasty implant and graft; Z88.0 Allergy status to penicillin; Z79.899 Other long term (current) drug therapy; Z87.891 Personal history of nicotine dependence